=== PATIENT | male | born 1995 | race Caucasian/White ===

== ENCOUNTER 2017-03-08 14:45 | Observation (INO) | payer SELFPAY ==
[2017-03-08] MEDS ORDERED: Sodium Chloride 0.9% 10 ML Syringe FLUSH PRN (15:10)
[2017-03-08] MEDS ORDERED: Sodium Chloride 0.9% 2.5 ML Syringe FLUSH PRN (15:10)
--- NOTE | 2017-03-08 15:14 | EDM.PDOC ---
ED HPI GENERAL MEDICAL PROBLEM - General Chief Complaint: Respiratory Problem Stated Complaint: VOMITING UP BLOOD Time Seen by Provider: 03/08/17 14:48 Source of Information: Reports: Patient History Limitations: Reports: No Limitations - History of Present Illness INITIAL COMMENTS - FREE TEXT/NARRATIVE: History of present illness: []Patient has been coughing up blood intermittently for 5 hours. Patient's had 3 days of cough and fevers. He complains of abdominal pain and sharp chest pain. Denies any shortness of breath. Review of systems: As per history of present illness and below otherwise all systems reviewed and negative. Past medical history: As per history of present illness and as reviewed below otherwise noncontributory. Surgical history: As per history of present illness and as reviewed below otherwise noncontributory. Social history: No reported history of drug or alcohol abuse. Family history: As per history of present illness and as reviewed below otherwise noncontributory. Physical exam: General: Well developed, well nourished in NAD HEENT: Atraumatic, normocephalic, pupils reactive, negative for conjunctival pallor or scleral icterus, mucous membranes moist, throat clear, neck supple, nontender, trachea midline. Lungs: Clear to auscultation, breath sounds equal bilaterally, chest nontender. Heart: S1S2, regular, negative for clicks, rubs, or JVD. Abdomen: Soft, nondistended, nontender. Negative for masses or hepatosplenomegaly. Negative for costovertebral tenderness. Pelvis: Stable nontender. Genitourinary: Deferred. Rectal: Deferred. Extremities: Atraumatic, negative for cords or calf pain. Neurovascular unremarkable. Neuro: Awake, alert, oriented. Cranial nerves II through XII unremarkable. Cerebellum unremarkable. Motor and sensory unremarkable throughout. Exam nonfocal. Diagnostics: []CBC chemistry of blood cultures drawn, CT chest abdomen pelvis and negative Therapeutics: []Levaquin IV Impression: []Cough with hemoptysis Plan: []Admit for observation Definitive disposition and diagnosis as appropriate pending reevaluation and review of above. - Related Data Allergies Allergy/AdvReac Type Severity Reaction Status Date / Time No Known Allergies Allergy Verified 03/08/17 14:51 Home Meds: Home Meds . [No Known Home Meds] 03/08/17 [History] Past Medical History - Past Health History Medical/Surgical History: Denies Medical/Surgical History Social & Family History - Family History Family Medical History: Noncontributory - Tobacco Use Smoking Status *Q: Never Smoker - Recreational Drug Use Recreational Drug Use: No ED ROS GENERAL - Review of Systems Review Of Systems: See Below (See history of present illness) ED EXAM, GENERAL - Physical Exam Exam: See Below (See history of present illness) Course - Vital Signs Last Recorded V/S: Last Vital Signs Temp 100.5 F 03/08/17 17:15 Pulse 94 03/08/17 17:48 Resp 16 03/08/17 17:48 BP 116/72 03/08/17 17:48 Pulse Ox 96 03/08/17 17:48 - Orders/Labs/Meds Orders: Active Orders 24 hr Category Date Time Status Sodium Chloride 0.9% [Saline Flush] Med 03/08/17 15:10 Active 10 ml FLUSH ASDIRECTED PRN Sodium Chloride 0.9% [Saline Flush] Med 03/08/17 15:10 Active 2.5 ml FLUSH ASDIRECTED PRN Saline Lock Insert [OM.PC] Stat Oth 03/08/17 15:10 Ordered Medication Orders Levofloxacin/Dextrose 500 mg/ (Premix) 100 mls @ 100 mls/hr IV ONETIME ONE Stop: 03/08/17 18:01 Last Admin: 03/08/17 17:45 Dose: 100 mls/hr Sodium Chloride (Normal Saline) 1,000 mls @ 999 mls/hr IV .Bolus ONE Stop: 03/08/17 18:14 Last Infusion: 03/08/17 17:48 Dose: 400 mls/hr Admin: 03/08/17 17:20 Dose: 999 mls/hr Sodium Chloride (Saline Flush) 10 ml FLUSH ASDIRECTED PRN PRN Reason: Keep Vein Open Sodium Chloride (Saline Flush) 2.5 ml FLUSH ASDIRECTED PRN PRN Reason: Keep Vein Open Labs: Laboratory Tests 03/08/17 03/08/17 03/08/17 Range/Units 15:18 15:18 15:18 WBC 11.23 H (4.0-11.0) K/uL RBC 4.63 (4.50-5.90) M/uL Hgb 14.0 (13.0-17.0) g/dL Hct 40.7 (38.0-50.0) % MCV 87.9 (80.0-98.0) fL MCH 30.2 (27.0-32.0) pg MCHC 34.4 (31.0-37.0) g/dL RDW Std Deviation 42.8 (28.0-62.0) fl RDW Coeff of Erik 13 (11.0-15.0) % Plt Count 213 (150-400) K/uL MPV 10.70 (7.40-12.00) fL Neut % (Auto) 75.2 (48.0-80.0) % Lymph % (Auto) 15.7 L (16.0-40.0) % Will % (Auto) 8.6 (0.0-15.0) % Eos % (Auto) 0.2 (0.0-7.0) % Baso % (Auto) 0.3 (0.0-1.5) % Neut # (Auto) 8.5 H (1.4-5.7) K/uL Lymph # (Auto) 1.8 (0.6-2.4) K/uL Will # (Auto) 1.0 H (0.0-0.8) K/uL Eos # (Auto) 0.0 (0.0-0.7) K/uL Baso # (Auto) 0.0 (0.0-0.1) K/uL Nucleated RBC % 0.0 /100WBC Nucleated RBCs # 0 K/uL INR 1.11 (0.86-1.11) Sodium 138 (136-146) mmol/L Potassium 4.1 (3.5-5.1) mmol/L Chloride 103 (98-110) mmol/L Carbon Dioxide 26 (21-31) mmol/L BUN 11 (6.0-23.0) mg/dL Creatinine 0.8 (0.6-1.5) mg/dL Est Cr Clr Drug Dosing 146.25 mL/min Estimated GFR (MDRD) > 60.0 ml/min Glucose 97 (60-110) mg/dL Calcium 9.6 (8.8-10.8) mg/dL Total Bilirubin 0.3 (0.1-1.5) mg/dL AST 20 (5-40) IU/L ALT 19 (8-54) IU/L Alkaline Phosphatase 72 (40-150) Total Protein 7.9 (6.0-8.0) g/dL Albumin 3.9 (3.5-5.0) g/dL Globulin 4.0 H (2.0-3.5) g/dL Albumin/Globulin Ratio 1.0 L (1.3-2.8) Blood Type Antibody Screen 03/08/17 Range/Units 15:18 WBC (4.0-11.0) K/uL RBC (4.50-5.90) M/uL Hgb (13.0-17.0) g/dL Hct (38.0-50.0) % MCV (80.0-98.0) fL MCH (27.0-32.0) pg MCHC (31.0-37.0) g/dL RDW Std Deviation (28.0-62.0) fl RDW Coeff of Erik (11.0-15.0) % Plt Count (150-400) K/uL MPV (7.40-12.00) fL Neut % (Auto) (48.0-80.0) % Lymph % (Auto) (16.0-40.0) % Will % (Auto) (0.0-15.0) % Eos % (Auto) (0.0-7.0) % Baso % (Auto) (0.0-1.5) % Neut # (Auto) (1.4-5.7) K/uL Lymph # (Auto) (0.6-2.4) K/uL Will # (Auto) (0.0-0.8) K/uL Eos # (Auto) (0.0-0.7) K/uL Baso # (Auto) (0.0-0.1) K/uL Nucleated RBC % /100WBC Nucleated RBCs # K/uL INR (0.86-1.11) Sodium (136-146) mmol/L Potassium (3.5-5.1) mmol/L Chloride (98-110) mmol/L Carbon Dioxide (21-31) mmol/L BUN (6.0-23.0) mg/dL Creatinine (0.6-1.5) mg/dL Est Cr Clr Drug Dosing mL/min Estimated GFR (MDRD) ml/min Glucose (60-110) mg/dL Calcium (8.8-10.8) mg/dL Total Bilirubin (0.1-1.5) mg/dL AST (5-40) IU/L ALT (8-54) IU/L Alkaline Phosphatase (40-150) Total Protein (6.0-8.0) g/dL Albumin (3.5-5.0) g/dL Globulin (2.0-3.5) g/dL Albumin/Globulin Ratio (1.3-2.8) Blood Type AB POSITIVE Antibody Screen NEGATIVE Meds: Medications Generic Name Dose Route Start Last Admin Trade Name Freq PRN Reason Stop Dose Admin Levofloxacin/Dextrose 500 mg/ 100 mls @ 100 mls/hr 03/08/17 17:02 03/08/17 17 :45 Premix IV 03/08/17 18:01 100 mls/hr ONETIME ONE Administration Sodium Chloride 1,000 mls @ 999 mls/hr 03/08/17 17:14 03/08/17 17:48 Normal Saline IV 03/08/17 18:14 400 mls/hr .Bolus ONE Infusion Sodium Chloride 10 ml 03/08/17 15:10 Saline Flush FLUSH ASDIRECTED PRN Keep Vein Open Sodium Chloride 2.5 ml 03/08/17 15:10 Saline Flush FLUSH ASDIRECTED PRN Keep Vein Open Discontinued Medications Generic Name Dose Route Start Last Admin Trade Name Beatriz PRN Reason Stop Dose Admin Iopamidol 88 ml 03/08/17 16:19 03/08/17 16:19 Isovue Multipack-370 (76%) IVPUSH 03/08/17 16:20 88 ml ONETIME STA Administration Departure - Departure Time of Disposition: 17:57 Disposition: Refer to Observation Condition: Good Clinical Impression: Cough with hemoptysis - Discharge Information - My Orders Last 24 Hours: My Active Orders 03/08/17 15:10 Sodium Chloride 0.9% [Saline Flush] 10 ml FLUSH ASDIRECTED PRN Sodium Chloride 0.9% [Saline Flush] 2.5 ml FLUSH ASDIRECTED PRN Saline Lock Insert [OM.PC] Stat - Assessment/Plan Last 24 Hours: My Active Orders 03/08/17 15:10 Sodium Chloride 0.9% [Saline Flush] 10 ml FLUSH ASDIRECTED PRN Sodium Chloride 0.9% [Saline Flush] 2.5 ml FLUSH ASDIRECTED PRN Saline Lock Insert [OM.PC] Stat
[2017-03-08 15:47] LABS: CHLORIDE,CL 103 mmol/L (98-110); SODIUM,NA 138 mmol/L (136-146)
[2017-03-08] MEDS ORDERED: Iopamidol 755 MG/ML 500 ML Multipack Bottle IVPUSH STA (16:19)
--- NOTE | 2017-03-08 16:44 | CT ---
CT of the chest, abdomen and pelvis with contrast. HISTORY: Shortness of breath TECHNIQUE: Axial CT images were obtained of the chest, abdomen and pelvis following administration of 88 mL of Isovue-370 in the left antecubital fossa without complication. Coronal and sagittal reconst ructions obtained. FINDINGS: Chest: The lungs are clear without focal consolidation. No pleural effusion or pneumothorax. There is a calcified granuloma noted within the left lung base. The heart is normal in size without a pericar dial effusion. No mediastinal, hilar, or axillary lymphadenopathy. Thoracic aorta is normal in calibe r. Main pulmonary arteries are patent. The esophagus appears grossly normal. Abdomen: The liver, spleen, adrenal glands, and pancreas appear normal. The gallbladder is normal. Th ere is no bulky retroperitoneal lymphadenopathy or abdominal ascites. The kidneys enhance and function symmetrically without evidence of obstructive uropathy. Tiny right r enal cortical cysts are noted. Pelvis: The large and small bowel are normal in caliber without evidence of obstruction. No focal per icolonic examination. The appendix is retrocecal and appears normal. The urinary bladder is normal. N o bulky pelvic lymphadenopathy or free pelvic fluid. No suspicious osseous abnormalities identified. Old left pelvic fractures are noted. IMPRESSION: 1. No acute findings identified within the chest, abdomen, or pelvis.
[2017-03-08] MEDS ORDERED: Levofloxacin/Dextrose 5%-Water 500 MG in Premix Bag 1 BAG IV ONE (17:02)
[2017-03-08] MEDS ORDERED: Sodium Chloride 0.9% 1,000 ML IV ONE (17:14)
[2017-03-08] MEDS ORDERED: Acetaminophen 325 MG Tab PO PRN (18:33)
[2017-03-08] MEDS ORDERED: Ondansetron 4 MG/2 ML SDV IVPUSH PRN (18:33)
[2017-03-08] MEDS ORDERED: guaiFENesin/Dextromethorphan 100-10 MG/5 ML Syrup 237 ML Bottle PO PRN (18:39)
--- NOTE | 2017-03-08 18:39 | PCM.HP ---
<Jomar Shepherd Jono - Last Filed: 03/08/17 18:35> H&P History of Present Illness - General Admit Problem/Dx: Admission Diagnosis/Problem Admission Diagnosis/Problem Cough with hemoptysis - History of Present Illness Initial Comments - Free Text/Narative: 21 yo male who presents with three day history of myalgias, productive cough, and subjective fevers. He felt he was getting over it today but then at work he spit up blood and started to cough it up. Since being seen in the ED his hemoptysis has stopped. He was given a liter of fluid and levaquin. - Related Data Allergies/Adverse Reactions: Allergies Allergy/AdvReac Type Severity Reaction Status Date / Time No Known Allergies Allergy Verified 03/08/17 14:51 Home Medications: Home Meds Amoxicillin [Amoxil] 500 mg PO Q12HR #20 cap 03/09/17 [Rx] Pantoprazole [ProTONIX] 40 mg PO DAILY #20 tab.cr 03/09/17 [Rx] Past Medical History - Past Health History Medical/Surgical History: Denies Medical/Surgical History Musculoskeletal History: Reports: Fracture, Other (See Below) Other Musculoskeletal History: Fx Pelvis, Left Tibia, Ribs, Collar Bone. - Infectious Disease History Infectious Disease History: Reports: Chicken Pox Social & Family History - Family History Family Medical History: Noncontributory - Tobacco Use Smoking Status *Q: Never Smoker Second Hand Smoke Exposure: No - Caffeine Use Caffeine Use: Reports: Soda - Alcohol Use Days Per Week of Alcohol Use: 2 Number of Drinks Per Day: 2 Total Drinks Per Week: 4 - Recreational Drug Use Recreational Drug Use: No H&P Review of Systems - Review of Systems: Review Of Systems: ROS reveals no pertinent complaints other than HPI. HEENT: Reports: Sore Throat Exam - Vital Signs Vital Signs: Last Vital Signs Temp 37.8 C 03/08/17 18:00 Pulse 99 03/08/17 18:00 Resp 16 03/08/17 18:00 BP 138/77 03/08/17 18:00 Pulse Ox 95 03/08/17 18:00 Weight: 66.95 kg - Exam General: Alert, Oriented, 4 HEENT: Mucosa Moist & Coyle Lungs: Clear to Auscultation, Normal Respiratory Effort Cardiovascular: Regular Rate, Regular Rhythm GI/Abdominal Exam: Soft, Non-Tender, No Mass Extremities: No Pedal Edema Skin: Warm, Dry, Intact - Patient Data Result Diagrams: 03/08/17 15:18 03/08/17 15:18 *Q Meaningful Use (ADM) - VTE *Q VTE Criteria *Q: - Stroke *Q Stroke Criteria *Q: - AMI *Q AMI Criteria *Q: Problem List Initiated/Reviewed/Updated: Yes Orders Last 24hrs: Active Orders 24 hr Category Date Time Status Antiembolic Devices [RC] PER UNIT ROUTINE Care 03/08/17 18:34 Ordered Oxygen Therapy [RC] PRN Care 03/08/17 18:34 Ordered Up ad Rima [RC] ASDIRECTED Care 03/08/17 18:33 Ordered VTE/DVT Education [RC] PER UNIT ROUTINE Care 03/08/17 18:34 Ordered Vital Signs [RC] Q4H Care 03/08/17 18:34 Ordered Regular Diet [DIET] Diet 03/08/17 Breakfast Ordered BASIC METABOLIC PANEL,BMP [CHEM] AM Lab 03/09/17 05:11 Ordered CBC WITH AUTO DIFF [HEME] AM Lab 03/09/17 05:11 Ordered HIV12 AG/AB 4TH GEN W/REFLEX [CHEM] Routine Lab 03/08/17 18:33 Ordered INFLUENZA A+B AG SCREEN [RM] Routine Lab 03/08/17 18:33 Uncollected MONONUCLEOSIS SCREEN [CHEM] Routine Lab 03/08/17 18:33 Ordered Acetaminophen [Tylenol] Med 03/08/17 18:33 Ordered 650 mg PO Q4H PRN Ondansetron [Zofran] Med 03/08/17 18:33 Ordered 4 mg IVPUSH Q4H PRN Pantoprazole [ProTONIX] Med 03/08/17 18:45 Ordered 40 mg PO DAILY Blood Culture x2 Reflex Set [OM.PC] Stat Oth 03/08/17 17:40 Ordered Sequential Compression Device [OM.PC] Per Unit Routine Oth 03/08/17 18:34 Ordered Resuscitation Status Routine Resus Stat 03/08/17 18:33 Ordered Medication Orders Pantoprazole Sodium (Protonix) 40 mg PO DAILY CJ Sodium Chloride (Saline Flush) 10 ml FLUSH ASDIRECTED PRN PRN Reason: Keep Vein Open Sodium Chloride (Saline Flush) 2.5 ml FLUSH ASDIRECTED PRN PRN Reason: Keep Vein Open Assessment/Plan Comment:: 21 yo male who presents with hemoptysis likely from acute bronchitis. CT scan of chest is unremarkable. We will screen for influenza. We will treat him supportively and monitor overnight. <Alice Taylor - Last Filed: 03/12/17 10:49> H&P History of Present Illness - General Admit Problem/Dx: Admission Diagnosis/Problem Admission Diagnosis/Problem Cough with hemoptysis Exam - Exam Exam: See Below - Vital Signs Vital Signs: Last Vital Signs Temp 98.7 F 03/09/17 08:00 Pulse 84 03/09/17 08:00 Resp 16 03/09/17 08:00 BP 121/68 03/09/17 08:00 Pulse Ox 97 03/09/17 08:00 - Patient Data Lab Results Last 24 hrs: Laboratory Results - last 24 hr 03/09/17 03/09/17 Range/Units 05:00 05:00 WBC 8.89 (4.0-11.0) K/uL RBC 4.63 (4.50-5.90) M/uL Hgb 13.7 (13.0-17.0) g/dL Hct 40.7 (38.0-50.0) % MCV 87.9 (80.0-98.0) fL MCH 29.6 (27.0-32.0) pg MCHC 33.7 (31.0-37.0) g/dL RDW Std Deviation 43.3 (28.0-62.0) fl RDW Coeff of Erik 14 (11.0-15.0) % Plt Count 206 (150-400) K/uL MPV 11.10 (7.40-12.00) fL Neut % (Auto) 59.6 (48.0-80.0) % Lymph % (Auto) 28.1 (16.0-40.0) % Bell % (Auto) 11.0 (0.0-15.0) % Eos % (Auto) 0.9 (0.0-7.0) % Baso % (Auto) 0.4 (0.0-1.5) % Neut # (Auto) 5.3 (1.4-5.7) K/uL Lymph # (Auto) 2.5 H (0.6-2.4) K/uL Bell # (Auto) 1.0 H (0.0-0.8) K/uL Eos # (Auto) 0.1 (0.0-0.7) K/uL Baso # (Auto) 0.0 (0.0-0.1) K/uL Nucleated RBC % 0.0 /100WBC Nucleated RBCs # 0 K/uL Sodium 139 (136-146) mmol/L Potassium 4.2 (3.5-5.1) mmol/L Chloride 105 (98-110) mmol/L Carbon Dioxide 24 (21-31) mmol/L BUN 9 (6.0-23.0) mg/dL Creatinine 0.8 (0.6-1.5) mg/dL Est Cr Clr Drug Dosing 135.99 mL/min Estimated GFR (MDRD) > 60.0 ml/min Glucose 91 (60-110) mg/dL Calcium 9.1 (8.8-10.8) mg/dL Result Diagrams: 03/09/17 05:00 03/09/17 05:00 Aleksander Results Last 24 hrs: Microbiology 03/08/17 19:55 Influenza Type A Antigen Screen - Final Nasopharyngeal Swab - Nare, Right NEGATIVE INFLUENZA A VIRUS AG Influenza Type B Antigen Screen - Final NEGATIVE INFLUENZA B VIRUS AG 03/08/17 19:55 Group A Streptococcus Rapid Screen - Final Throat Positive Strep A Screen *Q Meaningful Use (ADM) - VTE *Q VTE Criteria *Q: - Stroke *Q Stroke Criteria *Q: - AMI *Q AMI Criteria *Q: Orders Last 24hrs: Active Orders 24 hr Category Date Time Status Antiembolic Devices [RC] PER UNIT ROUTINE Care 03/08/17 18:34 Active Oxygen Therapy [RC] PRN Care 03/08/17 18:34 Active Ready for Discharge [RC] PER UNIT ROUTINE Care 03/09/17 10:31 Active Up ad Rima [RC] ASDIRECTED Care 03/08/17 18:33 Active Vital Signs [RC] Q4H Care 03/08/17 18:34 Active CULTURE BLOOD [BC] Stat Lab 03/08/17 17:22 Received CULTURE BLOOD [BC] Stat Lab 03/08/17 17:29 Received Acetaminophen [Tylenol] Med 03/08/17 18:33 Active 650 mg PO Q4H PRN Amoxicillin [Amoxil] Med 03/08/17 23:32 Active 500 mg PO Q12HR Dextromethorphan/guaiFENesin [Robitussin DM] Med 03/09/17 07:30 Active 10 ml PO Q4H PRN Ondansetron [Zofran] Med 03/08/17 18:33 Active 4 mg IVPUSH Q4H PRN Pantoprazole [ProTONIX] Med 03/08/17 18:45 Active 40 mg PO DAILY Blood Culture x2 Reflex Set [OM.PC] Stat Ot 03/08/17 17:40 Ordered Blood Culture x2 Reflex Set [OM.PC] Stat Ot 03/08/17 17:40 Ordered Sequential Compression Device [OM.PC] Per Unit Routine Oth 03/08/17 18:34 Ordered Resuscitation Status Routine Resus Stat 03/08/17 18:33 Ordered Medication Orders Acetaminophen (Tylenol) 650 mg PO Q4H PRN PRN Reason: Pain (Mild 1-3)/fever Last Admin: 03/08/17 19:37 Dose: 650 mg Amoxicillin (Amoxil) 500 mg PO Q12HR [facility] Last Admin: 03/09/17 08:42 Dose: 500 mg Admin: 03/08/17 23:40 Dose: 500 mg Guaifenesin/Dextromethorphan (Robitussin Dm) 10 ml PO Q4H PRN PRN Reason: Cough Ondansetron HCl (Zofran) 4 mg IVPUSH Q4H PRN PRN Reason: Nausea Pantoprazole Sodium (Protonix) 40 mg PO DAILY [facility] [place] Last Admin: 03/09/17 08:42 Dose: 40 mg Admin: 03/08/17 19:37 Dose: 40 mg Sodium Chloride (Saline Flush) 10 ml FLUSH ASDIRECTED PRN PRN Reason: Keep Vein Open Sodium Chloride (Saline Flush) 2.5 ml FLUSH ASDIRECTED PRN PRN Reason: Keep Vein Open
[2017-03-08] MEDS: Pantoprazole 40 MG Tab.CR PO SCH (19:37)
[2017-03-08] MEDS: Amoxicillin 500 MG Cap PO SCH (23:40)
[2017-03-09 05:45] LABS: CHLORIDE,CL 105 mmol/L (98-110); SODIUM,NA 139 mmol/L (136-146)
[2017-03-09] MEDS ORDERED: guaiFENesin/Dextromethorphan 100-10 MG/5 ML Soln 10 ML Cup PO PRN (07:30)
[2017-03-09] MEDS: Amoxicillin 500 MG Cap PO SCH (08:42)
[2017-03-09] MEDS: Pantoprazole 40 MG Tab.CR PO SCH (08:42)
--- NOTE | 2017-03-09 10:43 | PCM.DCSUM1 ---
<Alice Taylor - Last Filed: 03/09/17 10:38> Discharge Summary - Hospital Course Free Text/Narrative:: 21 yo male admitted for hemopytiss. He had myalgias, sorethroat, abdominal pain , cough x 3 three days. He did not have elevated wbc. He was given levaquin in the ER x 1. Chest and abdominal CT negative. He had a positive strep screen. Stewart an HIV screen negative. He was c/o gerd symptoms. He was started on protonix and amoxicillin. His symptoms have improved. He is discharged with amoxicillin 500 mg po BID x 10 days and short term protonix until symptoms of Gerd resolve. - Discharge Data Discharge Date: 03/09/17 Discharge Disposition: Home, Self-Care 01 Condition: Good - Patient Instructions Diet: Regular Diet as Tolerated Activity: As Tolerated Driving: May Drive Today Showering/Bathing: May Shower Notify Provider of: Fever, Increased Pain, Swelling and Redness, Drainage, Nausea and/or Vomiting - Discharge Plan Prescriptions/Med Rec: RX: Amoxicillin [Amoxil] 500 mg PO Q12HR #20 cap RX: Pantoprazole [ProTONIX] 40 mg PO DAILY #20 tab.cr Home Medications: Home Meds RX: Amoxicillin [Amoxil] 500 mg PO Q12HR #20 cap 03/09/17 [Rx] RX: Pantoprazole [ProTONIX] 40 mg PO DAILY #20 tab.cr 03/09/17 [Rx] Patient Handouts: Amoxicillin capsules or tablets, Strep Throat, Acute Bronchitis, [id number], Pantoprazole tablets Referrals: Abdulaziz Jimenez DO [Physician] - 03/15/17 11:00 am - General Info Date of Service: 03/09/17 - Review of Systems General: Reports: No Symptoms HEENT: Reports: Sore Throat Pulmonary: Reports: No Symptoms. Denies: Pleuritic Chest Pain, Hemoptysis, Wheezing Cardiovascular: Reports: No Symptoms Gastrointestinal: Reports: No Symptoms Genitourinary: Reports: No Symptoms Musculoskeletal: Reports: No Symptoms Skin: Reports: No Symptoms Neurological: Reports: No Symptoms Psychiatric: Reports: No Symptoms - Patient Data Vitals - Most Recent: Last Vital Signs Temp 98.7 F 03/09/17 08:00 Pulse 84 03/09/17 08:00 Resp 16 03/09/17 08:00 BP 121/68 03/09/17 08:00 Pulse Ox 97 03/09/17 08:00 Weight - Most Recent: 66.95 kg I&O - Last 24 hours: Intake & Output 03/08/17 03/09/17 03/09/17 22:59 06:59 14:59 Intake Total 590 Balance 590 Lab Results - Last 24 hrs: Laboratory Results - last 24 hr 03/09/17 03/09/17 Range/Units 05:00 05:00 WBC 8.89 (4.0-11.0) K/uL RBC 4.63 (4.50-5.90) M/uL Hgb 13.7 (13.0-17.0) g/dL Hct 40.7 (38.0-50.0) % MCV 87.9 (80.0-98.0) fL MCH 29.6 (27.0-32.0) pg MCHC 33.7 (31.0-37.0) g/dL RDW Std Deviation 43.3 (28.0-62.0) fl RDW Coeff of Erik 14 (11.0-15.0) % Plt Count 206 (150-400) K/uL MPV 11.10 (7.40-12.00) fL Neut % (Auto) 59.6 (48.0-80.0) % Lymph % (Auto) 28.1 (16.0-40.0) % Stewart % (Auto) 11.0 (0.0-15.0) % Eos % (Auto) 0.9 (0.0-7.0) % Baso % (Auto) 0.4 (0.0-1.5) % Neut # (Auto) 5.3 (1.4-5.7) K/uL Lymph # (Auto) 2.5 H (0.6-2.4) K/uL Stewart # (Auto) 1.0 H (0.0-0.8) K/uL Eos # (Auto) 0.1 (0.0-0.7) K/uL Baso # (Auto) 0.0 (0.0-0.1) K/uL Nucleated RBC % 0.0 /100WBC Nucleated RBCs # 0 K/uL Sodium 139 (136-146) mmol/L Potassium 4.2 (3.5-5.1) mmol/L Chloride 105 (98-110) mmol/L Carbon Dioxide 24 (21-31) mmol/L BUN 9 (6.0-23.0) mg/dL Creatinine 0.8 (0.6-1.5) mg/dL Est Cr Clr Drug Dosing 135.99 mL/min Estimated GFR (MDRD) > 60.0 ml/min Glucose 91 (60-110) mg/dL Calcium 9.1 (8.8-10.8) mg/dL [facility] Results - Last 24 hrs: Microbiology 03/08/17 19:55 Influenza Type A Antigen Screen - Final Nasopharyngeal Swab - Nare, Right NEGATIVE INFLUENZA A VIRUS AG Influenza Type B Antigen Screen - Final NEGATIVE INFLUENZA B VIRUS AG 03/08/17 19:55 Group A Streptococcus Rapid Screen - Final Throat Positive Strep A Screen Med Orders - Current: Current Medications Acetaminophen (Tylenol) 650 mg PO Q4H PRN PRN Reason: Pain (Mild 1-3)/fever Last Admin: 03/08/17 19:37 Dose: 650 mg Amoxicillin (Amoxil) 500 mg PO Q12HR [facility] Last Admin: 03/09/17 08:42 Dose: 500 mg Guaifenesin/Dextromethorphan (Robitussin Dm) 10 ml PO Q4H PRN PRN Reason: Cough Ondansetron HCl (Zofran) 4 mg IVPUSH Q4H PRN PRN Reason: Nausea Pantoprazole Sodium (Protonix) 40 mg PO DAILY [facility] Last Admin: 03/09/17 08:42 Dose: 40 mg Sodium Chloride (Saline Flush) 10 ml FLUSH ASDIRECTED PRN PRN Reason: Keep Vein Open Sodium Chloride (Saline Flush) 2.5 ml FLUSH ASDIRECTED PRN PRN Reason: Keep Vein Open Discontinued Medications Amoxicillin (Amoxil) 500 mg PO Q12HR [facility] Guaifenesin/Dextromethorphan (Q-Tussin Dm) 10 ml PO Q4H PRN PRN Reason: Cough Levofloxacin/Dextrose 500 mg/ (Premix) 100 mls @ 100 mls/hr IV ONETIME ONE Stop: 03/08/17 18:01 Last Admin: 03/08/17 17:45 Dose: 100 mls/hr Sodium Chloride (Normal Saline) 1,000 mls @ 999 mls/hr IV .Bolus ONE Stop: 03/08/17 18:14 Last Infusion: 03/08/17 17:48 Dose: 400 mls/hr Iopamidol (Isovue Multipack-370 (76%)) 88 ml IVPUSH ONETIME STA Stop: 03/08/17 16:20 Last Admin: 03/08/17 16:19 Dose: 88 ml - Exam General: Reports: Alert, Oriented HEENT: Reports: Pupils Equal, EOMI, Other (erythematous without exudate pharyngitis) Neck: Reports: Supple, Trachea Midline Lungs: Reports: Clear to Auscultation, Normal Respiratory Effort Cardiovascular: Reports: Regular Rate, Regular Rhythm GI/Abdominal Exam: Normal Bowel Sounds, Soft Back Exam: Reports: Normal Inspection Extremities: Normal Inspection Skin: Reports: Warm, Dry, Intact Neurological: Reports: No New Focal Deficit *Q Meaningful Use (DIS) - VTE *Q VTE Criteria *Q: - Stroke *Q Stroke Criteria *Q: - AMI *Q AMI Criteria *Q: <Jomar Shepherd - Last Filed: 03/10/17 21:51> - Patient Data Vitals - Most Recent: Last Vital Signs Temp 37.1 C 03/09/17 08:00 Pulse 84 03/09/17 08:00 Resp 16 03/09/17 08:00 BP 121/68 03/09/17 08:00 Pulse Ox 97 03/09/17 08:00 [place] Results - Last 24 hrs: Microbiology 03/08/17 17:29 Aerobic Blood Culture - Preliminary Blood - Venous - Lab Draw NO GROWTH AFTER 2 DAYS Anaerobic Blood Culture - Preliminary NO GROWTH AFTER 2 DAYS 03/08/17 17:22 Aerobic Blood Culture - Preliminary Blood - Venous NO GROWTH AFTER 2 DAYS Anaerobic Blood Culture - Preliminary NO GROWTH AFTER 2 DAYS Med Orders - Current: Current Medications Discontinued Medications Acetaminophen (Tylenol) 650 mg PO Q4H PRN PRN Reason: Pain (Mild 1-3)/fever Last Admin: 03/08/17 19:37 Dose: 650 mg Amoxicillin (Amoxil) 500 mg PO Q12HR [facility] Amoxicillin (Amoxil) 500 mg PO Q12HR [facility] Last Admin: 03/09/17 08:42 Dose: 500 mg Guaifenesin/Dextromethorphan (Q-Tussin Dm) 10 ml PO Q4H PRN PRN Reason: Cough Guaifenesin/Dextromethorphan (Robitussin Dm) 10 ml PO Q4H PRN PRN Reason: Cough Levofloxacin/Dextrose 500 mg/ (Premix) 100 mls @ 100 mls/hr IV ONETIME ONE Stop: 03/08/17 18:01 Last Admin: 03/08/17 17:45 Dose: 100 mls/hr Sodium Chloride (Normal Saline) 1,000 mls @ 999 mls/hr IV .Bolus ONE Stop: 03/08/17 18:14 Last Infusion: 03/08/17 17:48 Dose: 400 mls/hr Iopamidol (Isovue Multipack-370 (76%)) 88 ml IVPUSH ONETIME STA Stop: 03/08/17 16:20 Last Admin: 03/08/17 16:19 Dose: 88 ml Ondansetron HCl (Zofran) 4 mg IVPUSH Q4H PRN PRN Reason: Nausea Pantoprazole Sodium (Protonix) 40 mg PO DAILY [facility] Last Admin: 03/09/17 08:42 Dose: 40 mg Sodium Chloride (Saline Flush) 10 ml FLUSH ASDIRECTED PRN PRN Reason: Keep Vein Open Sodium Chloride (Saline Flush) 2.5 ml FLUSH ASDIRECTED PRN PRN Reason: Keep Vein Open *Q Meaningful Use (DIS) - VTE *Q VTE Criteria *Q: - Stroke *Q Stroke Criteria *Q: - AMI *Q AMI Criteria *Q: - Free Text/Narrative Note: I have examined the patient. I have discussed findings and treatment plan with resident. I agree with the assessment and plan outlined in the following resident's note.
[2017-03-09] MEDS ORDERED: Amoxicillin 500 MG Cap PO SCH (22:42)
== END 2017-03-09 10:50 | disposition home or self-care (01) ==
LOC: MW.ED 14:45 → MW.MS 17:00
PROVIDERS: ADMIT Internal Medicine; ATTEND Internal Medicine
DX: R04.2 Hemoptysis (principal); K21.9 Gastro-esophageal reflux disease without esophagitis; Z79.899 Other long term (current) drug therapy
CPT/HCPCS: 36415; 71260; 74177; 80048; 80053; 85025; 85610; 86308; 86850; 86900; 86901; 87040; 87389; 87804; 87880; 96374; 99285; A9270; G0378; J1956; J7040; Q9967; 99283